=== PATIENT | female | born 1935 | race Caucasian/White ===

== ENCOUNTER 2018-07-31 13:36 | Emergency (ER) | payer OTHER, MEDICARE ==
--- NOTE | 2018-07-31 13:40 | PDOC ---
History of Present Illness - General Chief Complaint: Pain Stated Complaint: LEFT ARM PAIN FROM FINGERS TO SHOULDER NO CHEST Time Seen by Provider: 07/31/18 13:39 History Source: Patient Exam Limitations: No Limitations - History of Present Illness Initial Comments: 07/31/18 13:51 Ms Tenorio presents to the ER with her with a complaint of left arm tingling Pt reports that she has had this tingling in her arm for the past 3 days It is located in [place] left thumb and radiates up the shoulder Pt describes the sensation as "sour tingling" no pain No trauma No chest pain She does note that her cardiac condition was diagnosed based on left arm tingling Pt denies headache Pt denies neck pain or history of cervical herniation Pt denies weakness pt now notes a similar sensation in her left hip She lives in [facility] and [facility]? [facility] Cardiac work up was 4 years ago (ECHO and provocative testing, unsure results but was told her heart was good) PMH: CAD s/p PCI and stenting (Denies DM, HTN, HLD) PSH: Stent x 7 Meds: unsure, no longer takes Plavix or ASA ALL: PCN --> ? Social: denies tobacco or drug use FH: non contributory ROS: GENERAL/CONSTITUTIONAL: No: fever, chills, weakness, loss of appetite. HEAD, EYES, EARS, NOSE AND THROAT: No: change in vision, ear pain, discharge, sore throat, throat swelling. CARDIOVASCULAR: No: chest pain, lightheadedness, palpitations, syncope RESPIRATORY: No: cough, shortness of breath, wheezing, hemoptysis, stridor. GASTROINTESTINAL: No: nausea, vomiting, diarrhea, abdominal cramping, rectal bleeding, constipation. GENITOURINARY: No: dysuria, hematuria, frequency, urgency, flank pain. MUSCULOSKELETAL: No: back pain, neck pain, joint pain, muscle swelling or pain SKIN AND BREASTS: No: lesions, pallor, rash or easy bruising. NEUROLOGIC: No: headache, vertigo, paresthesias, weakness ENDOCRINE: No: unexplained weight gain or loss HEMATOLOGIC/LYMPHATIC: No: anemia, easy bleeding, swelling nodes. PE: GENERAL: The patient is in no acute distress. HEAD: Normal EYES: PERRLA, EOMI, sclera anicteric, conjunctiva clear. ENT: Ears normal, nares patent, oropharynx clear without exudates. Moist mucous membranes. NECK: Normal range of motion, supple without midline tenderness LUNGS: Breath sounds equal, clear to auscultation bilaterally. No wheezes, and no crackles. HEART:Regular rate and rhythm, normal S1 and S2 without murmur, rub or gallop. ABDOMEN: Soft, nontender, normoactive bowel sounds. No guarding, no rebound. EXTREMITIES: Normal range of motion, no edema. NEUROLOGICAL: Cranial nerves II through XII grossly intact. Normal speech. No focal neurological deficits. Strength bilaterally 5/5 Left hand squeeze? less strong than the right side??? Sensation in tact and equal between arms MUSCULOSKELETAL: Back non-tender to palpation, no c spine tenderness SKIN: Warm, Dry, normal turgor, no rashes or lesions noted. 07/31/18 14:14 07/31/18 15:23 Past History - Past Medical History Allergies/Adverse Reactions: Allergies Allergy/AdvReac Type Severity Reaction Status Date / Time No Known Allergies Allergy Unverified 07/31/18 13:38 Home Medications: Ambulatory Orders Unobtainable 07/31/18 ED Treatment Course - LABORATORY CBC & Chemistry Diagram: 07/31/18 14:10 07/31/18 14:10 Medical Decision Making - Medical Decision Making 07/31/18 13:49 EKG - NSR rate of 67 bpm, axis nml, intervals abn - pr: 154ms, QRS:90ms, QTc: 545ms, no st elevation or depression 07/31/18 14:20 DD includes but is not limited to ACS, Cervical radiculopathy, TIA/CVA Will do: Labs, EKG, CT Will discharge to home (per pt request) with labs and CT results 07/31/18 15:06 Laboratory Tests 07/31/18 07/31/18 14:10 14:10 WBC 5.8 Hgb 13.9 Hct 41.8 Plt Count 205 BUN 31.0 H Creatinine 1.3 07/31/18 15:06 CT head - moderate volume loss and ventricular dilatation, chronic microvascular ischemic changes, no gross infarct 07/31/18 15:08 Laboratory Tests 07/31/18 07/31/18 14:10 14:10 Creatine Kinase 179 Troponin I < 0.03 07/31/18 15:[address] Parada Reviewed with airline pilot/first officer Pt will be discharged to home *DC/Admit/Observation/Transfer Diagnosis at time of Disposition: Tingling of left upper extremity - Discharge Dispostion Disposition: HOME Condition at time of disposition: Stable Decision to Admit order: No - Referrals - Patient Instructions Printed Discharge Instructions: DI for Numbness/tingling Additional Instructions: Ms Tenorio Thank you for coming in to the ER today Please review your results I have contacted your primary doctor (she was not in her office) Please give her a call when you can She should review your results Return to the emergency department immediately with ANY new, persistent or worsening symptoms. Continue any medications as previously prescribed by your physician. You should follow up with your primary doctor as soon as possible regarding today's emergency department visit. Please make sure your doctor reviews the results of your emergency evaluation. Thank you for coming to the [facility] today for your care. It was a pleasure to see you today. Please note that your evaluation is INCOMPLETE until you follow-up with your doctor. - Post Discharge Activity
[2018-07-31 13:45] VITALS: PULSE 71; BMI 28.3
[2018-07-31 14:40] LABS: BASO % 0.6 % (0-2.0); EOS % 2.4 % (0-4.5); HEMATOCRIT 41.8 % (32.4-45.2); HEMOGLOBIN 13.9 GM/dl (10.7-15.3); LYMPH % 32.2 % (8-40); MCH 31.8 pg (25.7-33.7); MCHC 33.2 g/dl (32.0-36.0); MEAN CELL VOLUME 95.9 fl (80-96); MEAN PLT VOLUME 7.7 fl (7.5-11.1); MONO % 7.6 % (3.8-10.2); NEUT % 57.2 % (42.8-82.8); PLATELET COUNT 205 K/MM3 (134-434); RBC 4.36 M/mm3 (3.60-5.2); RDW 12.4 % (11.6-15.6); WHITE BLOOD COUNT 5.8 K/mm3 (4.0-10.8)
[2018-07-31 14:47] LABS: ALBUMIN 4.2 g/dl (3.4-5.0); BILIRUBIN,TOTAL 0.8 mg/dl (0.2-1); CALCIUM 9.2 mg/dl (8.5-10); CREATININE 1.3 mg/dl (0.55-1.3); POTASSIUM 3.6 mmol/L (3.5-5.1); TOT PROT 6.9 g/dl (6.4-8.2)
[2018-07-31 15:31] VITALS: BP 154/73; TEMP 97.8
--- NOTE | 2018-08-02 12:57 | EKG ---
Test Reason : Blood Pressure : / mmHG Vent. Rate : 067 BPM Atrial Rate : 067 BPM P-R Int : 154 ms QRS Dur : 090 ms QT Int : 516 ms P-R-T Axes : 054 012 025 degrees QTc Int : 545 ms NORMAL SINUS RHYTHM POSSIBLE LEFT ATRIAL ENLARGEMENT PROLONGED QT ABNORMAL ECG NO PREVIOUS ECGS AVAILABLE Confirmed by MARIAA PRECIADO MD ([id number]) on 08/02/2018 12:56:36 PM Referred By: DR Nicol CASTRO Confirmed By:MARIAA PRECIADO MD
== END 2018-07-31 15:39 | disposition home or self-care (01) ==
LOC: FER 13:36
DX: R20.2 Paresthesia of skin (principal); I25.10 Atherosclerotic heart disease of native coronary artery without angina pectoris
CPT/HCPCS: 36415; 70450-TC; 80053; 82550; 82553; 84484; 85025; 93005; 99282-25